=== PATIENT | female | born 1945 | race Two or more races ===

== ENCOUNTER → 2021-01-04 | Emergency (ER) | payer OTHER ==
[~2021-01-04] VITALS: Ht 154.9 cm; Wt 53.5 kg
[~2021-01-04] MED LIST: COZAAR50 MG; TOPROL XL25 M1; TUSNEL LIQUID178 ML PO; ZITHROMAX500 MG PO; ZYRTEC10 MG PO
== END | disposition home or self-care (01) ==
LOC: ER 18:16
DX: R05 Cough (principal); R53.81 Other malaise; Z03.818 Encounter for observation for suspected exposure to other biological agents ruled out

== ENCOUNTER 2021-06-01 07:42 | Outpatient (CLI) | payer OTHER | END 2021-06-01 07:49 | disposition home or self-care (01) | LOC: RAD 07:42 | DX: S63.102A Unspecified subluxation of left thumb, initial encounter (principal) ==

== ENCOUNTER 2023-11-26 10:28 | Outpatient (CLI) | payer OTHER ==
[~2023-11-26 10:28] MED LIST changes: +MELOXICAM15 MG PO
== END 2023-11-26 10:30 | disposition home or self-care (01) ==
LOC: MRI 10:28
PROVIDERS: ATTEND Orthopaedic Surgery
DX: M25.562 Pain in left knee (principal)
CPT/HCPCS: 73721